=== PATIENT | male | born 1965 | race Caucasian/White ===

== ENCOUNTER 2018-01-17 22:06 | Emergency (ER) | payer MEDICAID, OTHER ==
[~2018-01-17] VITALS: Ht 190.5 cm; Wt 101.2 kg
[2018-01-18 05:43] VITALS: BP 142/91
== END 2018-01-18 07:02 | disposition home or self-care (01) ==
LOC: EDBD 22:06 → ER 22:12
DX: F41.9 Anxiety disorder, unspecified (principal); F20.9 Schizophrenia, unspecified; F17.210 Nicotine dependence, cigarettes, uncomplicated; F12.10 Cannabis abuse, uncomplicated; F31.9 Bipolar disorder, unspecified